=== PATIENT | female | born 1965 | race Caucasian/White ===

== ENCOUNTER 2023-02-19 21:10 | Inpatient (IN) | payer SELFPAY ==
[~2023-02-19] VITALS: Ht 144.8 cm; Wt 48.1 kg
[2023-02-19 22:23] VITALS: BP_SYST 126
--- NOTE | 2023-02-19 22:23 | NUR ---
Triaged and placed patient back to the waiting room. No acute respiratory distress at this time. VSS. Informed patient to notify ED staff for any changes in condition or worsening of symptoms while waiting to be seen by a provider. Patient verbalized understanding.
[2023-02-19 23:13] LABS: BASOPHILS % (AUTO) 0.2 % (0.0-2.0); HEMATOCRIT 37.9 % (36-48); HEMOGLOBIN 12.3 g/dL (12.0-16.0); LYMPHOCYTES % (AUTO) 7.1 % (20.5-51.5); MEAN CORPUSCULAR HEMOGLOBIN 27 pg (27-31); MEAN CORPUSCULAR HGB CONC 33 % (32-36); MEAN CORPUSCULAR VOLUME 82 fL (79.0-98.0); MONOCYTES # (AUTO) 0.7 K/uL (0.0-1.0); MONOCYTES % (AUTO) 4.9 % (1.7-9.3); NEUTROPHILS # (AUTO) 12.7 K/uL (1.8-7.7); NEUTROPHILS % (AUTO) 87.8 % (40.0-70.0); PLATELET COUNT (AUTO) 280 K/uL (130-430); RED BLOOD CELL COUNT(AUTO) 4.61 MIL/uL (4.2-6.2); RED CELL DISTRIBUTION WIDTH 15.9 % (9.0-15.0); WHITE BLOOD COUNT (AUTO) 14.5 K/uL (4.8-10.8)
[2023-02-19 23:38] LABS: CALCIUM 8.9 mg/dL (8.4-11.0); CREATININE 0.7 mg/dL (0.55-1.30)
[2023-02-19 23:43] LABS: ALBUMIN 3.8 g/dL (3.4-4.8); TOTAL BILIRUBIN 0.6 mg/dL (0.0-1.0)
[2023-02-20] MEDS ORDERED: MORPHINE 2 MG/ML INJ. SYRINGE IVP ONE (01:15)
[2023-02-20] MEDS ORDERED: NACL 0.9% 1,000 ML IV ONE (01:15)
[2023-02-20] MEDS ORDERED: PROCHLORPERAZINE EDISYLATE 10 MG/2 ML VIAL IVP ONE (01:15)
--- NOTE | 2023-02-20 01:15 | NUR ---
Patient placed in ER Hallway 1 for evaluation. Bed placed in lowest position with side rails up. Report given to Jerod MYRICK for continuity of care. Instructed to notify ED staff for any changes in condition or worsening of symptoms while waiting to be seen by a provider. Patient verbalized understanding.
--- NOTE | 2023-02-20 02:00 | NUR ---
pt walked in c/o generalized abdominal pain. +N/V. pt states she took mag citrate at home in the morning. denies CP, SOB
[2023-02-20 02:56] LABS: BILIRUBIN,URINE NEGATIVE (NEGATIVE); BLOOD, URINE NEGATIVE (NEGATIVE); COLOR,URINE YELLOW (YELLOW); GLUCOSE,URINE NEGATIVE (NEGATIVE); KETONES,URINE 2+ (NEGATIVE); LEUKOCYTE ESTERASE ,URINE TRACE (NEGATIVE); NITRITE, URINE NEGATIVE (NEGATIVE); PH,URINE 6.5 (5.0-8.0); PROTEIN URINE TRACE (NEGATIVE)
[2023-02-20 03:05] LABS: CLARITY/URINE SLIGHTLY CLOUDY (CLEAR)
[2023-02-20 03:06] LABS: BACTERIA,URINE FEW /HPF (None Seen); RBC,URINE 0-3 /HPF (0-3)
[2023-02-20] MEDS ORDERED: cefTRIAXone 1 GM in D5W 50 ML IV ONE (04:15)
[2023-02-20] MEDS ORDERED: metroNIDAZOLE 500 mg/NS 100 ML IV ONE (04:15)
[2023-02-20] MEDS ORDERED: cefTRIAXone 1 GM IVPB PREMIX 50 ML IV ONE (04:21)
--- NOTE | 2023-02-20 04:22 | NUR ---
no blood cultures per MD
--- NOTE | 2023-02-20 04:53 | NUR ---
pt ambulated to restroom
--- NOTE | 2023-02-20 05:44 | NUR ---
Admit bed requested Patient will be admitted to care of Dr. FLORES. Admitted to [facility] unit. Diagnosis DIVERTICULITIS Inpatient (Yes or No) YES Observation (Yes or No) NO Orientation concerns or request close to nursing station (Yes or No) NO Covid Status NOT DONE On vent or bipap NO Isolation requirements NONE Needs a sitter NO From Home (Yes or if No enter name of facility) YES Requires Dialysis (Yes or No) [NO Med Rec Completed (Yes of No) PENDING
--- NOTE | 2023-02-20 07:20 | NUR ---
recieved report from [facility] nurse Jerod. pt is AAOX3, pt complains of tolerable abdominal pain to the LUQ. antibiotics bedside completed. flushed pt IV line 3 mL of normal saline, no resistance no complain of pain. daughter at bedside. pt is NPO.
[2023-02-20 09:30] VITALS: BP_SYST 134
--- NOTE | 2023-02-20 09:30 | NUR ---
ADMIT TO UNIT PATIENT IS AOX4. ROMANSH AND WELSH SPEAKER. PATIENT IS AMBULATORY WITH STEADY GAIT. NO SS OF ACUTE DISTRESS NOTED. BREATHING IS EVEN AND NONLABORED,ON ROOM AIR. VITAL SIGNS OBTAINED, DOCUMENTED. IV TO RAC 20G. APPEARS PATENT. NO OFF OF INFILTRATION NOTED. FLUSHED 10 CC OF NS. FLUSHES WELL. PATIENT DENIES SEVERE ABDOMINAL PAIN AT THIS TIME, JUST DISCOMFORT. PATIENT HAS BEEN ORIENTED TO ROOM AND USE OF CALL LIGHT. BED IS LOCKED AND AT LOWEST POSITION. CALL LIGHT WITHIN REACH. DAUGHTER AT BEDSIDE.
[2023-02-20 09:31] VITALS: BP_SYST 134
--- NOTE | 2023-02-20 09:38 | NUR ---
Report given to receivpaul RN. VSS. Pt aware and agreeable to admission. Pt transported via gurney with all belongings.
--- NOTE | 2023-02-20 09:52 | NUR ---
CONSULTATION PAGED REASON FOR CONSULTATION: DIVERTICULITIS WAS CONSULT CALLED? Y PERSON WHO WAS NOTIFIED: NILE CONSULTING PHYSICIAN: SULTANA ENNIS [facility] SPECIALTY: [facility] PHONE NUMBER: [phone] REQUESTING PHYSICIAN: ESAU ALTAMIRANO
[2023-02-20] MEDS: D5/0.45 NS 1,000 ML IV SCH ×3 (10:08→23:04)
--- NOTE | 2023-02-20 10:20 | NUR ---
PAGED DR FLORES FOR ORDERS.
[2023-02-20] MEDS ORDERED: ONDANSETRON HCL 4 MG/2 ML VIAL IVP PRN ×2 (10:30→12:00)
[2023-02-20 11:29] VITALS: BP_SYST 126
[2023-02-20] MEDS ORDERED: ACETAMINOPHEN 325 MG TABLET PO PRN ×2 (12:00)
[2023-02-20] MEDS ORDERED: HYDROcodone/ACETAMIN 5-325 MG TAB (NORCO/ VICODIN) PO PRN (12:00)
[2023-02-20] MEDS ORDERED: NALOXONE HCL 0.4 MG/ML AMP (NARCAN) IVP PRN ×2 (12:00)
[2023-02-20] MEDS ORDERED: LORazepam 2 MG/ML VIAL IVP PRN (12:00)
[2023-02-20] MEDS: HYDROcodone/ACETAMIN 10-325 MG TAB PO PRN ×2 (14:15→23:03)
--- NOTE | 2023-02-20 14:30 | NUR ---
notes Patient requested pain medication. Stated pain 8/10 to abdomen. Administered [place] 10. IVF running. daughter at bedside. safety precautions in place and call light within reach.
[2023-02-20] MEDS: metroNIDAZOLE 500 mg/NS 100 ML IV SCH ×2 (14:56→23:03)
--- NOTE | 2023-02-20 15:52 | NUR ---
CONSULTATION: REASON FOR CONSULT: GI BLEED CONSULTING PHYSICIAN: ARACELI ORDERED BY: MARK SPOKE WITH BHARGAVI [phone]
--- NOTE | 2023-02-20 16:30 | NUR ---
Notes Patient resting, eyes closed. Appears to be sleeping. Breathing is even and nonlabored, room air. IVF running. IV patent. All safety precautions in place and call light within reach.
[2023-02-20 17:06] VITALS: BP_SYST 99
--- NOTE | 2023-02-20 18:58 | NUR ---
Closing Notes Patient is eating dinner. Denies abdominal pain, Denies nausea and vomiting. Breathing is even and nonlabored, on room air. IV patent. IVF running. No SOB noted. Patient is stable. All needs met. Family at bedside. All safety precautions in place and call light within reach.
[2023-02-20 21:00] VITALS: BP_SYST 119
--- NOTE | 2023-02-20 22:45 | NUR ---
NORCO TABLET 10/325 MG po given for general pain , position change encouraged & tolerated also helpful / .
[2023-02-21] VITALS: BP_SYST 100
--- NOTE | 2023-02-21 | NUR ---
ZOFRAN 4 NG IVP administer for GI upset and helpful per patient .
--- NOTE | 2023-02-21 03:29 | NUR ---
Hourly Rounding patient Resting HOB elevated Respirations Remain Regular also unlabored call torres given to patient skin dry warm / .
[2023-02-21] MEDS: metroNIDAZOLE 500 mg/NS 100 ML IV SCH ×3 (06:07→21:33)
[2023-02-21 07:57] LABS: BASOPHILS % (AUTO) 0.3 % (0.0-2.0); EOSINOPHILS # (AUTO) 0.1 K/uL (0.0-0.4); EOSINOPHILS % (AUTO) 1.3 % (0.0-4.0); HEMATOCRIT 31.4 % (36-48); HEMOGLOBIN 10.3 g/dL (12.0-16.0); LYMPHOCYTES # (AUTO) 1.8 K/uL (1.0-5.5); LYMPHOCYTES % (AUTO) 20.1 % (20.5-51.5); MEAN CORPUSCULAR HEMOGLOBIN 27 pg (27-31); MEAN CORPUSCULAR HGB CONC 33 % (32-36); MEAN CORPUSCULAR VOLUME 83 fL (79.0-98.0); MONOCYTES # (AUTO) 1.1 K/uL (0.0-1.0); MONOCYTES % (AUTO) 11.5 % (1.7-9.3); NEUTROPHILS # (AUTO) 6.1 K/uL (1.8-7.7); NEUTROPHILS % (AUTO) 66.8 % (40.0-70.0); PLATELET COUNT (AUTO) 226 K/uL (130-430); RED BLOOD CELL COUNT(AUTO) 3.77 MIL/uL (4.2-6.2); RED CELL DISTRIBUTION WIDTH 16.1 % (9.0-15.0); WHITE BLOOD COUNT (AUTO) 9.1 K/uL (4.8-10.8)
[2023-02-21 08:00] VITALS: BP_SYST 131
--- NOTE | 2023-02-21 08:00 | NUR ---
OPENING NOTES: PT STANDING THE SINK WASHING HER FACE AND BRUSHING TEETH. NO S/S OF DISTRESS OR PAIN REPORTED. BREATHING IS EVEN AND UNLABORED ON RA 94%. ALL NEEDS MET AT THIS TIME, SAFETY CHECKS MADE AND CALL LIGHT WITHIN REACH.
[2023-02-21 08:12] LABS: CALCIUM 7.8 mg/dL (8.4-11.0); CREATININE 0.62 mg/dL (0.55-1.30)
[2023-02-21] MEDS: D5/0.45 NS 1,000 ML IV SCH ×2 (11:45→21:45)
[2023-02-21 12:00] VITALS: BP_SYST 117
[2023-02-21 16:00] VITALS: BP_SYST 115; BP_SYST 119
--- NOTE | 2023-02-21 18:53 | NUR ---
CLOSING NOTES: PT IN BED. FAMILY AT BEDSIDE. NO S/S OF DISTRESS OR PAIN REPORTED. BREATHING IS EVEN AND UNLABORED ON RA 96%. IV FLUIDS ARE RUNNING ORDERED. EDUCATED PT ON USE OF CALL LIGHT. PT VERBALIZED UNDERSTANDING. ALL NEEDS MET AT THIS TIME, SAFETY CHECKS MADE AND CALL LIGHT WITHIN REACH.
--- NOTE | 2023-02-21 19:20 | NUR ---
OPENING NOTE PT LYING IN BED AND EYES OPEN. TWO VISITOR BED SIDE. A/O X4. BREATHING EVEN AND NONLABORED ON RA. PT REPORTED PAIN ON HER RAC IV SITE. IV SITE SWOLLEN AND INFILTRATED. NEED NEW IV. PT REPORTED ABD PAIN 04/01. ASKED PAIN MED. SAFETY CHECKS IN PLACE. CALL LIGHT IN REACH. CONTINUE TO MONITOR
[2023-02-21 20:00] VITALS: BP_SYST 115
--- NOTE | 2023-02-21 20:45 | NUR ---
IV REMOVED IV ON RAC 20G. INSERTED 22F ON RFA. WELL FLUSHED AND BLOOD RETURN. SKIN INTACT. RESTARTED IV FLUID.
--- NOTE | 2023-02-21 21:30 | NUR ---
IV RFA IV INFILTRATED. INSERTED NEW IV ON LFA 22G. WELL FLUSHED AND BLOOD RETURNED. SKIN INTACT.
[2023-02-22 00:40] VITALS: BP_SYST 115
--- NOTE | 2023-02-22 04:00 | NUR ---
ROUNDING NOTE PT LYING IN BED AND EYES CLOSED. BREATHING NONLABORED. NO S/S OF ACUTE DISTRESS OR PAIN. SAFETY CHECKS IN PLACE. CALL LIGHT IN REACH. CONTINUE TO MONITOR
[2023-02-22] MEDS: metroNIDAZOLE 500 mg/NS 100 ML IV SCH (05:12)
[2023-02-22 05:16] LABS: BASOPHILS # (AUTO) 0.1 K/uL (0.0-0.2); BASOPHILS % (AUTO) 0.8 % (0.0-2.0); EOSINOPHILS # (AUTO) 0.2 K/uL (0.0-0.4); EOSINOPHILS % (AUTO) 2.9 % (0.0-4.0); HEMATOCRIT 29.5 % (36-48); HEMOGLOBIN 9.7 g/dL (12.0-16.0); LYMPHOCYTES # (AUTO) 2.1 K/uL (1.0-5.5); LYMPHOCYTES % (AUTO) 24.4 % (20.5-51.5); MEAN CORPUSCULAR HEMOGLOBIN 27 pg (27-31); MEAN CORPUSCULAR HGB CONC 33 % (32-36); MEAN CORPUSCULAR VOLUME 83 fL (79.0-98.0); MONOCYTES # (AUTO) 0.7 K/uL (0.0-1.0); MONOCYTES % (AUTO) 8.4 % (1.7-9.3); NEUTROPHILS # (AUTO) 5.4 K/uL (1.8-7.7); NEUTROPHILS % (AUTO) 63.5 % (40.0-70.0); PLATELET COUNT (AUTO) 191 K/uL (130-430); RED BLOOD CELL COUNT(AUTO) 3.54 MIL/uL (4.2-6.2); RED CELL DISTRIBUTION WIDTH 15.9 % (9.0-15.0); WHITE BLOOD COUNT (AUTO) 8.4 K/uL (4.8-10.8)
[2023-02-22 05:31] LABS: CALCIUM 7.5 mg/dL (8.4-11.0); CREATININE 0.59 mg/dL (0.55-1.30)
--- NOTE | 2023-02-22 06:53 | NUR ---
CLOSING NOTE PT LYING IN BED AND EYES CLOSED. A/O X4. BREATHING EVEN AND NONLABORED ON RA. LFA IV SITE SKIN INTACT. NO S/S OF ACUTE DISTRESS OR PAIN. SAFETY CHECKS IN PLACE. CALL LIGHT IN REACH. ENDORSED TO DAY SHIFT NURSE
[2023-02-22 06:55] LABS: ERYTHROCYTE SEDIMENTATION RATE 28 MM/HR (0-20)
[2023-02-22] MEDS: D5/0.45 NS 1,000 ML IV SCH (07:45)
[2023-02-22 08:00] VITALS: BP_SYST 145
--- NOTE | 2023-02-22 08:27 | NUR ---
OPENING NOTES: PT STANDING THE SINK WASHING HER FACE AND BRUSHING TEETH. NO S/S OF DISTRESS OR PAIN REPORTED. BREATHING IS EVEN AND UNLABORED ON RA 97%. ALL NEEDS MET AT THIS TIME, SAFETY CHECKS MADE AND CALL LIGHT WITHIN REACH.
[2023-02-22] MEDS ORDERED: METR-154 PO (10:10)
[2023-02-22] MEDS ORDERED: CIPR500T5 PO (10:10)
[2023-02-22] MEDS ORDERED: POTASSIUM CHLORIDE 20 MEQ TAB.PRT.SR PO ONE (10:15)
[2023-02-22 10:37] VITALS: BP_SYST 128
--- NOTE | 2023-02-22 11:15 | NUR ---
pt discharged home with
== END 2023-02-22 11:10 | disposition home or self-care (01) | DRG 872 ==
LOC: SED 21:10 → SMU 02-20 05:33
PROVIDERS: ADMIT Preventive Medicine Preventive Medicine/Occupational Environmental Medicine; ATTEND Preventive Medicine Preventive Medicine/Occupational Environmental Medicine
DX: A41.9 Sepsis, unspecified organism (principal); K57.92 Diverticulitis of intestine, part unspecified, without perforation or abscess without bleeding; N39.0 Urinary tract infection, site not specified; D64.9 Anemia, unspecified; R73.9 Hyperglycemia, unspecified; E83.51 Hypocalcemia; E87.6 Hypokalemia
CPT/HCPCS: 36415; 76376; 80048; 80053; 81000; 83690; 85025; 85651-TC; 86140; 87086; 96361; 96365; 96375; 99285; J0696; J0780; J2270; J2405; J3490; J7060